=== PATIENT | female | born 1955 | race Caucasian/White ===

== ENCOUNTER 2022-08-02 13:16 | Observation (INO) | payer MEDICARE ==
[~2022-08-02] VITALS: Ht 165.1 cm; Wt 132.8 kg
--- OUTSIDE RECORDS SUMMARY | 2022-08-02 13:20 | XMS ---
PreManage Notification: BETSY CASTORENA Security [employer] Di[employer] Events No recent Security Events currently on file CRITERIA MET - [facility] CARE PROVIDERS There are no care providers on record at this time. Twila has no Care Guidelines for this patient. Tiffanie VISIT COUNT (12 MO.) [address] [place] [id number] JHONNY Tracey TOTAL 2 NOTE: Visits indicate total known visits. ED/C VISIT TRACKING (12 MO.) 08/02/2022 13:18 JHONNY Coy OR TYPE: Emergency COMPLAINT: - LIGHT HEADED, FATIGUED, DIZZY 03/03/2022 10:38 [facility] OR TYPE: Emergency DIAGNOSES: - POSS SHINGLES - Zoster without complications INPATIENT VISIT TRACKING (12 MO.) No inpatient visits to display in this time frame [email or web address]
[2022-08-02] MEDS ORDERED: METOPROLOL SUCC25 MG PO (13:48)
[2022-08-02] MEDS ORDERED: HYDROCHLOROTH12.5 MG PO (13:48)
[2022-08-02] MEDS ORDERED: TRULICITY4.5 MG/0.5 SUB-Q (13:48)
[2022-08-02] MEDS ORDERED: GABAPENTIN300 MG PO (13:48)
[2022-08-02] MEDS ORDERED: ATORVASTATIN CA40 MG PO (13:48)
[2022-08-02] MEDS ORDERED: OZEMPIC0.25 MG/0. SQ (13:49)
[2022-08-02] MEDS ORDERED: ONDANSETRON ODT4 MG PO (13:49)
--- NOTE | 2022-08-02 19:30 | NUR ---
PT ARRIVED TO UNIT FROM ED. FIRST UNIT OF PRBC INFUSING. PT AMBULATES WELL, A/O, RESPIRATIONS EVEN AND REGULAR.
--- NOTE | 2022-08-02 20:40 | NUR ---
MEDICATION ADMINISTRATION COMPLETED. PT A/O, RESPIRATIONS EVEN AND REGULAR. DENIES FEELING WEAK, LIGHTHEADED, OR SOB. CALL LIGHT WITHIN REACH.
--- NOTE | 2022-08-02 22:07 | NUR ---
PT HAS COMPLETED [id number] PRBC. NO ADVERSE REACTION. PT IS A/O, RESPIRATIONS EVEN AND REGULAR. IV FLUIDS RUNNING. CALL LIGHT WITHIN REACH.
--- NOTE | 2022-08-02 23:59 | NUR ---
PT ASSESSMENT COMPLETED. ASSISTED PT TO BEDSIDE COMMODE. PT IS A/O, AMBULATES WELL. IV FLUIDS RUNNING. DENIES ABD PAIN, DIZZINESS, SOB. CALL LIGHT WITHIN REACH.
--- NOTE | 2022-08-03 02:21 | NUR ---
TO PT ROOM FOR BG MONITORING. NO INSULIN REQUIRED ATT. ASSISTED PT TO BEDSIDE COMMODE. PT IS A/O, RESPIRATIONS EVEN AND REGULAR.
--- NOTE | 2022-08-03 04:21 | NUR ---
pt assessment completed. pt appears to be sleeping comfortably. arouses easily. IV fluids running.
--- NOTE | 2022-08-03 06:02 | NUR ---
PT LAB DRAW COMPLETED. PT TOLERATED WELL. IV FLUIDS RUNNING. CALL LIGHT WITHIN REACH.
--- NOTE | 2022-08-03 07:20 | NUR ---
REPORT RECEIVED, CARE OF PT ASSUMED AT THIS TIME.
--- NOTE | 2022-08-03 08:15 | NUR ---
ASSESSMENT AND MEDICATION ADMINISTRATION COMPLETED. PT ALERT AND ORIENTED. STATES SHE HAS PAIN FROM HER RECENT FALL AND REQUESTED PAIN MEDICATION. PT UNDERSTANDS PLAN FOR BOWEL PREP, CLEAR LIQUID DIET, AND UPPER AND LOWER ENDOSCOPY FOR TOMORROW. CALL LIGHT WITHIN REACH. WILL CONTINUE TO MONITOR.
--- NOTE | 2022-08-03 08:20 | NUR ---
INTO SEE PATIENT, PATIENT SITTING UP AT BEDSIDE. CASE MANAGEMENT ASSESSMENT COMPLETE. PATIENT STATES SHE LIVES IN A 2 STORY HOME WITH HER 85 YEARS OLD MOTHER. PATIENT STATES HE DAUGHTER ALSO LIVES CLOSE AND WILL BE ABLE TO HELP AT DISCHARGE IF NEEDED. PATIENT STATES SHE DOES USE A CANE FOR LONG DISTANCE WALKING, BUT FATIGUES QUICKLY. PATIENT STATES SHE HAS RECENTLY HAD A FALL DOWN HER STAIRS AT HOME, BUT IS PLANNING ON STAY ON THE FIRST FLOOR UNTIL SHE FEELS BETTER. DENIES FINANCIAL OR FOOD NEEDS. PATIENT ASKING IF THERE WERE ANY RESOURCES FOR CONSTRUTION WITH IN THE HOME. PATIENT STATES THAT SHE HAS MADE EFFORT TO MAKE HER HOME HANDICAP ACCESSIBLE HER MOTHER NOR HER WANT TO EVER GO TO A USP, BUT IS IN NEED OF A WALK IN SHOWER. RESOURCES GIVEN TO PATIENT FOR [facility] [employer] [place] TO DISCUSS ASSISTANCE WITH A SHOWER. NO FURTHER CASE MANAGEMENT NEEDS AT THIS TIME. WILL CONTINUE TO VISIT WITH PATIENT DURING HER STAY.
--- NOTE | 2022-08-03 08:51 | NUR ---
DR BECERRIL IN AT THIS TIME TO ASSESS PT AND UPDATE PT ON PLAN OF CARE FOR DAY. ALL QUESTIONS ANSWERED.
--- NOTE | 2022-08-03 09:16 | NUR ---
PT AMBULATED TO BATHROOM TO HAVE BOWEL MOVEMENT. STEADY ON FEET. NO DIZZINESS OR SHORTNESS OF BREATH. BACK IN BED. PRN PAIN MEDICATION GIVEN PER PATIENT REQUEST (SEE EMAR). CALL LIGHT WITHIN REACH. WILL CONTINUE TO MONITOR.
[2022-08-03] MEDS ORDERED: MECLIZINE HCL25 MG PO (09:37)
--- NOTE | 2022-08-03 10:17 | NUR ---
PT NAUSEATED. NOTIFIED. ORDERS RECIEVED FOR ZOFRAN PRN
--- NOTE | 2022-08-03 11:00 | NUR ---
PT NO LONGER NAUSEATED. STATES PAIN HAS DECREASED TO A MANAGABLE LEVEL. PHARMACIST IN ROOM TO GO OVER MEDICATIONS WITH PT AT THIS TIME.
--- NOTE | 2022-08-03 11:17 | NUR ---
MIR LAZO REQUESTED I NOT VISIT PT AT THIS TIME. DEALING WITH SOME NAUSEA. WILL CHECK BACK
--- NOTE | 2022-08-03 11:53 | NUR ---
PT SITTING ON SIDE OF BED USING HER PHONE. QUICKLY ASKED IF PT WOULD LIKE TO HAVE FR BRUSH VISIT TODAY. SHE SAID SHE WOULD LIKE THAT GAVE BLESSING, PT BACK TO HER PHONE CALL. WILL CONTACT FR BRUSH
[2022-08-03] MEDS ORDERED: TOUJEO SOL300 UNIT/1 SUB-Q (12:12)
[2022-08-03] MEDS ORDERED: HUMALOG JU100 UNIT/1 SUB-Q (12:13)
[2022-08-03] MEDS ORDERED: ZINC50 MG PO (12:14)
[2022-08-03] MEDS ORDERED: MAGOX 400400 MG PO (12:14)
[2022-08-03] MEDS ORDERED: VITAMIN D325 MCG PO (12:14)
[2022-08-03] MEDS ORDERED: IRON325 M1 PO (12:14)
--- NOTE | 2022-08-03 12:20 | NUR ---
ASSESSMENT UNCHANGED. PT GIVEN 3 UNITS OF INSULIN PER SLIDING SCALE. READING ASSISTANT NOW IN ROOM AT BEDSIDE. CALL LIGHT WITHIN REACH. WILL CONTINUE TO MONITOR.
[2022-08-03] MEDS ORDERED: NYSTATIN15 G2 TOP (12:32)
[2022-08-03] MEDS ORDERED: RABEPRAZOLE SOD20 MG PO (12:33)
--- NOTE | 2022-08-03 12:33 | NUR ---
MED REC COMPLETE
--- NOTE | 2022-08-03 12:45 | NUR ---
PATIENT AWAKE AT SIDE OF BED. VITALS CHARTED AND LUNCH PROVIDED.
--- NOTE | 2022-08-03 13:10 | NUR ---
RECEIVED REPORT, CARE ACCEPTED. PATIENT AWAKE, ALERT & ORIENTED X 4, SITTING ON SIDE OF BED, WATCHING TV. ADDRESSED NEEDS, OF MORE ICE IN CUP, AND DISCUSSED PAIN MEDICATION OPTIONS. ENCOURAGED PATIENT TO CONTINUE DRINKING BOWEL PREP. PATIENT WAS RECEPTIVE. PATIENT HR SINUS RHYTHM ON THE MONITOR, O2 SATS 92-95% ON ROOM AIR. RR EVEN AND UNLABORED. BOWEL SOUNDS ACTIVE ALL QUADS. LUNG SOUNDS CLEAR THROUGHOUT. IV INFUSING WITHOUT DIFFICULTY, SITE WNL, NO REDNESS OR HEMATOMAS NOTED.
--- NOTE | 2022-08-03 14:00 | NUR ---
PATIENT RESTING WITH EYES CLOSED, RR EVEN AND UNLABORED.
--- NOTE | 2022-08-03 14:29 | CONS ---
[facility] [address] [place], [place] [address] Signed DATE OF CONSULTATION: 08/03/2022 CHIEF COMPLAINT: Anemia. HISTORY OF PRESENT ILLNESS: Chelsea is a 67-year-old female, who actually was sent to our local emergency room by her primary care provider for findings of significant anemia on recent blood work. There is a question of whether or not she had anemia, but she had a green mucousy stool here in the hospital. She is quite pale and fatigued. She was put on the hospitalist service in the ICU. She received 2 units of packed red blood cells overnight and feels much better. She seems to be hemodynamically stable. She told me the anemia is chronic and because of that she loves to chew on ice. PAST MEDICAL HISTORY: 1. Chronic anemia. 2. Obstructive sleep apnea. 3. Hypertension. 4. Diabetes. 5. PICA syndrome. 6. Fibromyalgia. 7. Acid reflux. 8. Peptic ulcer disease x2. PAST SURGICAL HISTORY: Multiple upper and lower endoscopies with the [facility] with [facility] for polyps. SOCIAL HISTORY: She does not smoke or drink. She is retired now on disability for her back. She moved out to [place], [place] to be closer to her daughter. She does drive. Helen Bray is her physicians ophthalmic medical assistant here in [place], [place]. She prefers the [facility]. Her daughter is Adelia at [phone]. Her last Cardiology visit was with Dr. Alejandro in [place], [place]. FAMILY HISTORY: There is no family history of colon cancer or polyps. REVIEW OF SYSTEMS: She had 10 systems reviewed and she told me she has a long list of medical issues and we are trying to obtain those records from [place]. ALLERGIES: Electronically Signed By: JERRY DUONG MD 08/03/22 1429 PATIENT NAME: CHELSEA CASTORENA CONSULTATION DATE OF : 55 REPORT #: [id number] PHYSICIAN: JERRY DUONG MD PCP: HELEN BRAY PA-C REPORT IS CONFIDENTIAL AND NOT TO BE RELEASED WITHOUT AUTHORIZATION [facility] [address] [place], [place] [address] Signed Morphine and azithromycin. MEDICATIONS: 1. Gabapentin. 2. Metoprolol. 3. Hydrochlorothiazide. 4. Atorvastatin. 5. Trulicity. 6. Zofran. 7. Ozempic. PHYSICAL EXAMINATION: VITAL SIGNS: Her blood pressure is 135/96, heart rate is 76, respiratory rate 20. She is 5 feet 5 inches and 132 kg. Her body mass index is 48 and her temperature is 97.5. GENERAL: Chelsea is a 67-year-old female, who was sitting at the bedside this morning when I came around 7 o'clock this morning. She is actually very knowledgeable. She seemed to be quite coherent without any distress. LUNGS: Clear to auscultation bilaterally. HEART: Regular rate and rhythm. ABDOMEN: Obese, but soft. RECTAL: Exam is not repeated. LABORATORY DATA: Her white count is 5.2, the hemoglobin is 5.0, but it is up to 6.9 after 2 units, mean cell volume 72. The BUN is 17, the creatinine is 1.1, INR is 1.1. COVID is negative. Liver function tests are negative. Albumin is 2.7. EKG is pending. RADIOGRAPHIC STUDIES: None. ASSESSMENT AND PLAN: Chelsea is a 67-year-old obese diabetic female, who presents with what appears to be jqjdv-lz-pitddpx anemia. She certainly was quite pale and fatigued. She is very familiar with this whole process. I did review with her upper and lower endoscopy which she recalls quite well. Again, we are trying to obtain her records from the [facility]. She is going to go through her bowel prep today and we will plan on doing upper and lower endoscopy in the morning with monitored anesthesia care given her advanced age, anemia, and significant medical issues and her body mass index. She understands there is risk including, but not limited to gas bloating, crampy abdominal pain, bleeding, perforation requiring surgery, and missed diagnosis. She has expressed understanding and would like to proceed. Electronically Signed By: JERRY DUONG MD 08/03/22 1429 PATIENT NAME: CHELSEA CASTORENA CONSULTATION DATE OF : 55 REPORT #: [id number] PHYSICIAN: JERRY DUONG MD PCP: HELEN BRAY PA-C REPORT IS CONFIDENTIAL AND NOT TO BE RELEASED WITHOUT AUTHORIZATION [facility] [address] [place] [address] Signed Jerry Duong MD ALB/MODL /[id number] cc: MD Helen Domínguez PA-C Copies: JERRY DUONG MD ~ Electronically Signed By: JERRY DUONG MD 08/03/22 1429 PATIENT NAME: CHELSEA CASTORENA CONSULTATION DATE OF : 55 REPORT #: [id number] PHYSICIAN: JERRY DUONG MD PCP: HELEN BRAY PA-C REPORT IS CONFIDENTIAL AND NOT TO BE RELEASED WITHOUT AUTHORIZATION
--- NOTE | 2022-08-03 15:47 | NUR ---
PATIENT RESTING WITH EYES CLOSED, AWAKES EASILY AND APPROPRIATELY. LAB IN ROOM TO DRAW BLOOD. IV FLUIDS STOPPED PER MD ORDER. PATIENT CONTINUES TO REST, RR EVEN AND UNLABORED.
--- NOTE | 2022-08-03 17:34 | NUR ---
PATIENT AWAKE, RESTING IN BED, ASSISTED TO BATHROOM, GIVEN MEAL TRAY
--- NOTE | 2022-08-03 18:01 | NUR ---
PATIENT UP TO BATHROOM. HAVING BM. NO BLOOD SEEN IN STOOL.
--- NOTE | 2022-08-03 19:38 | NUR ---
RECEIVED REPORT FROM DAY SHIFT NURSE. PT IS A/O, RESPIRATIONS EVEN AND REGULAR. PT C/O FATIGUE, OTHERWISE NO COMPLAINTS. ASSISTED PT UP TO BEDSIDE COMMODE. CALL LIGHT WITHIN REACH.
--- NOTE | 2022-08-03 20:00 | NUR ---
PT ASSESSMENT AND MEDICATION ADMINISTRATION COMPLETED. PT IS COMPLETING SECOND BOTTLE OF BOWEL PREP. PT IS A/O, RESPIRATIONS EVEN AND REGULAR.
--- NOTE | 2022-08-03 21:25 | NUR ---
ASSISSTED PT TO BEDSIDE COMMODE. PT AMBULATES WELL. SECOND BOTTLE OF BOWEL PREP IS COMPLETED. PT IS A/O, CALL LIGHT WITHIN REACH.
--- NOTE | 2022-08-03 22:57 | NUR ---
ASSISTED PT TO BEDSIDE COMMODE. PT IS A/O, RESPIRATIONS EVEN AND REGULAR. CALL LIGHT WITHIN REACH.
--- NOTE | 2022-08-04 01:55 | NUR ---
TO PT ROOM FOR BG MONITORING. PT IS A/O, RESPIRATIONS EVEN AND REGULAR. DENIES NEEDS/COMPLAINTS ATT.
--- NOTE | 2022-08-04 02:57 | NUR ---
NOTED PATIENT OXYGEN SATURATION APPEARED TO DESAT TO 87% WITH GOOD PLETH ON MONITOR, INTO ROOM TO CHECK ON PATIENT. RESTING IN RIGHT SIDED POSITION, PATIENT APPEARED SOB, PATIENT STATES " I AM FEELING EXHAUSTED GETTING UP AND DOWN TO BSC BECAUSE OF ALL THE PREP" OXYGEN SATURATION 93% ON ROOM AIR, PATIENT VOIDED 300 ML OF BROWN LIQUID STOOL. UPON LEAVING ROOM PATIENT APPEARED TO RECOVER AND DID NOT APPEAR SOB. NO OTHER NEEDS, ENCOURAGED PATIENT TO CALL WHEN GETTING UP FOR STAFF ASSIST. PATIENT VERBALIZED UNDERSTANDING. CALL LIGHT WITHIN REACH.
--- NOTE | 2022-08-04 04:03 | NUR ---
PT ASSESSMENT COMPLETED. PT IS A/O, RESPIRATIONS EVEN AND REGULAR. PT SPO2 DROPPED TO 77% WHILE SLEEPING. PLACED ON 2L NC WHILE SLEEPING. CALL LIGHT WITHIN REACH.
--- NOTE | 2022-08-04 07:30 | NUR ---
REPORT RECIEVED. UP TO COMMODE TO VOID AND EXPELL SMALL LIGHT BROWN LIQ STOOL. DENIES PAIN OR NAUSEA. IS NPO FOR SCOPE. EGD/COLONOSCOPY TO BE DONE THIS AM. PATIENT IS AWARE.
--- NOTE | 2022-08-04 08:00 | NUR ---
ASSESSMENT COMPLETE. NO ACTIVE BLEEDING NOTED.
--- NOTE | 2022-08-04 08:40 | NUR ---
TO OR VIA STRETCHER FOR EGD AND COLONOSCOPY.
--- NOTE | 2022-08-04 09:20 | NUR ---
RETURN TO ROOM 128 FROM OR. IS AWAKE, FOLLOWING COMMANDS. REPORT RECIEVED FROM OR NURSE.
--- NOTE | 2022-08-04 09:26 | NUR ---
08/04/22 0926 Rachelle Mahajan 0917 NO PACU TIME. STRAIGHT TO CCU. PATIENT AWAKE ASKING/ANSWERING QUESTIONS APPROPRIATELY WITH STAFF.
--- NOTE | 2022-08-04 10:18 | NUR ---
SITTING UPAT BEDSIDE TO EAT BREAKFAST. DENIES PROBLEMS.
--- NOTE | 2022-08-04 11:00 | NUR ---
DR. ESPINAL HERE TO SEE PATIENT. DISCHARGE ORDERS RECIEVED.
--- NOTE | 2022-08-04 12:30 | NUR ---
ACCUCHECK-252, 3 UNITS HUMALOG INSULIN GIVEN. HAS BEEN GETTING UP TO BR W/O PROBLEMS. MONITOR DC'D. PATIENT NOW SITTING AT BEDSIDE TO EAT LUNCH.
--- NOTE | 2022-08-04 13:00 | NUR ---
SLEEPING, NO DISTRESS NOTED.
--- NOTE | 2022-08-04 13:40 | NUR ---
DISCHARGE INSTRUCTIONS GIVEN WITH PATIENT UNDERSTANDING. SL X 2 DC'Semaj.
--- NOTE | 2022-08-04 14:00 | NUR ---
DISCHARGED TO HOME ACCOMP BY DAUGHTER AND SENIOR DYNAMICS CRM DEVELOPER.
--- NOTE | 2022-08-05 08:05 | OR ---
[facility] [address] [place], [place] [address] Signed DATE OF OPERATION: 08/04/2022 SURGEON: Jerry Duong MD PREOPERATIVE DIAGNOSES: 1. Anemia. 2. Gastroesophageal reflux disease. 3. History of peptic ulcer disease x2. 4. Personal history of colonic polyps. POSTOPERATIVE DIAGNOSES: 1. Moderate gastritis. 2. Possible hiatal hernia. 3. Moderate external hemorrhoids. PROCEDURES: 1. Esophagogastroduodenoscopy with CLOtest and biopsies of the antrum. 2. Colonoscopy without biopsy. ESTIMATED BLOOD LOSS: None. INDICATION: Chelsea is a 67-year-old obese diabetic female, who was told by her primary care provider to come to our emergency room for her significant anemia. Also her platelet count is a little on the low side. In the meantime our hospitalist found a CT scan from last year that shows cirrhosis of the liver. Apparently, the patient is aware of this. The patient is fairly knowledgeable, but she is from [place] and we are still trying to track down her records. She said she has undergone multiple upper and lower endoscopies while in [place]. This has been through the [facility] with [facility]. She came in to our emergency room with a hemoglobin of 5.0. She got admitted to the Internal Medicine service and ICU. She was given 2 units of packed red blood cells. Her hemoglobin is now 7. Mean cell volume is low at 72. Her BUN was good at 17, creatinine is 1.1. INR was good at 1.1. COVID was negative. Her liver function tests were actually good. Albumin is low at 2.7. EKG showed normal sinus rhythm. I have been asked to see her as a general surgeon on-call for consideration of upper and lower endoscopy. Chelsea told me she is using Aciphex b.i.d. That is a prescription and yet there is some documentation and notes that she is purchasing this over the counter. Again, it is all little unclear. We are trying to track down her records. In the meantime, she went through a bowel prep yesterday. She has been hemodynamically stable. Electronically Signed By: JERRY DUONG MD 08/05/22 0805 PATIENT NAME: CHELSEA CASTORENA OPERATIVE REPORT DATE OF : 55 REPORT #: [id number] PHYSICIAN: JERRY DUONG MD PCP: HELEN BRAY PA-C REPORT IS CONFIDENTIAL AND NOT TO BE RELEASED WITHOUT AUTHORIZATION [facility] [address] [place], [place] [address] Signed She has actually done quite well. Really, the stools been mostly brown and mucousy. Really, not anything in the way of black stool. I met with Chelsea several times now. We talked about upper and lower endoscopy. She recalls the two tests quite well. She understands there is risk including, but not limited to gas bloating, crampy abdominal pain, bleeding, perforation requiring surgery, and missed diagnosis. We also reviewed the need for monitored anesthesia care given her advanced medical issues and her body habitus. She had expressed understanding and wished to proceed. PROCEDURE IN DETAIL: Chelsea was taken down to our endoscopy suite and placed in a supine semi-recumbent position. She was given monitored anesthesia care with IV propofol per our nurse office coordinator receptionist. Posterior oropharynx was anesthetized with Hurricaine spray. A bite block was utilized for the case. The adult gastroscope was introduced and advanced out into the antrum without difficulty. She has significant gastritis in the antrum. It took a few minutes in to get into the pylorus and then out into the duodenum. The duodenal and pyloric channel were unremarkable. Back in the antrum I took a biopsy for pathologic review as well as CLOtest. We took pictures throughout for photodocumentation. She does have some proximal gastritis, although markedly less. She does not have hypertrophied glands in the proximal half of the stomach as many people do after using a proton pump inhibitor twice a day. It looks like she may have a large hiatal hernia, although the cardia is not particularly concerning. She would need a barium swallow to ascertain that definition. The scope was withdrawn up through the area of the GE junction, which was compliant without stricture. We did not see any gastric or esophageal varices. Z-line is minimally interrupted. There was no Briggs's mucosa. No distal esophagitis. The middle and upper esophagus were unremarkable. After this, the gas was suctioned out and the gastroscope removed. Chelsea tolerated the upper endoscopy quite well. Chelsea was then rotated into the left lateral decubitus position. She was maintained on IV sedation with IV propofol. A digital rectal exam was performed and she has circumferential external hemorrhoids, moderate in size. She has good sphincter tone. There were no masses. The adult colonoscope was introduced and advanced all the way around into the cecum under direct visualization of camera. She has very large protuberant abdomen and it took the whole scope right up to the handle to get into the cecum. Overall, her prep was good. She can always use a little more prep in the future. The scope was slowly withdrawn. We took pictures throughout for photodocumentation. We found no polyps on this occasion and no diverticulosis. Upon retroflexion of the scope in the rectum, we did not see any obvious pathology above the anal canal. After this, the gas was suctioned out. The colonoscope removed. Chelsea tolerated the lower endoscopy quite well. RECOMMENDATIONS: Chelsea will be returned to her ICU bed on the hospital service. She will start on her Electronically Signed By: JERRY DUONG MD 08/05/22 0805 PATIENT NAME: CHELSEA CASTORENA OPERATIVE REPORT DATE OF : 55 REPORT #: [id number] PHYSICIAN: JERRY DUONG MD PCP: HELEN BRAY PA-C REPORT IS CONFIDENTIAL AND NOT TO BE RELEASED WITHOUT AUTHORIZATION [facility] [address] [place] [address] Signed diabetic diet. She will need to use a proton pump inhibitor twice a day at least for 6-8 weeks and then maybe once a day. She will follow up in my office in a week or so after discharge. Jerry Duong MD ALB/MODL /[id number] cc: SANDRA Winslow MD Copies: JERRY DUONG MD ~ Electronically Signed By: JERRY DUONG MD 08/05/22 0805 PATIENT NAME: CHELSEA CASTORENA OPERATIVE REPORT DATE OF : 55 REPORT #: [id number] PHYSICIAN: JERRY DUONG MD PCP: HELEN BRAY PA-C REPORT IS CONFIDENTIAL AND NOT TO BE RELEASED WITHOUT AUTHORIZATION
--- NOTE | 2022-08-05 15:58 | EKG ---
[facility] [address] [facility] [place] [address] Signed Normal sinus rhythm Normal ECG No previous ECGs available Confirmed by MADDIE ESPINAL MD ([id number]) on 08/05/2022 3:58:11 PM Electronically Signed By: MADDIE ESPINAL MD 08/05/22 1558 PATIENT NAME: BETSY CASTORENA Electrocardiogram DATE OF : 55 PHYSICIAN: MADDIE ESPINAL MD REPORT #: [id number] REPORT IS CONFIDENTIAL AND NOT TO BE RELEASED WITHOUT AUTHORIZATION
--- NOTE | 2022-08-07 15:38 | PATH ---
[facility] [address] [place], [place] [address] Signed SPECIMEN(S): A ANTRUM/ANTRAL BIOPSY SPECIMEN SOURCE: A. ANTRUM/ANTRAL BIOPSY CLINICAL HISTORY: Acute GI bleed, acute blood loss anemia. Dx: Gastritis/external hemorrhoids. FINAL PATHOLOGIC DIAGNOSIS: Antrum/antral biopsy: - Benign gastric-type mucosa with focal reactive epithelial features and mild chronic gastritis. - A Helicobacter pylori immunostain is negative for organisms. JVR:[facility]:C2NR MICROSCOPIC EXAMINATION: Histologic sections of all submitted blocks are examined by light microscopy. These findings, together with the gross examination, support the pathologic diagnosis. A Helicobacter pylori immunostain is performed with appropriate positive and negative controls on block (A1) and is negative for organisms. JVR:[facility] GROSS DESCRIPTION: The specimen, labeled and designated "Juan C, antrum/pylorus biopsy," is received in formalin and consists of two paniagua soft tissue fragments, ranging from 0.5-0.6 cm. Entirely submitted in (A1). VB (under the direct supervision of a pathologist) The Gross Description was prepared using a voice recognition system. The report was reviewed for accuracy; however, sound-alike word errors, addition and/or deletions may occur. If there is any question about this report, please contact Client Services. ADDITIONAL NOTES: Immunohistochemical and/or in situ hybridization studies were performed on this case with the appropriate positive controls that react as expected. This test was developed and its performance characteristics determined by Mr. Number. It has not been cleared or approved by the U.S. Food and Drug Administration. The FDA has determined that such clearance or approval is not necessary. This test is used for clinical purposes. It should not be regarded PATIENT NAME: BETSY CASTORENA PATHOLOGY DATE OF : 55 REPORT #: [id number] PHYSICIAN: [facility] PCP: HELEN BRAY PA-C REPORT IS CONFIDENTIAL AND NOT TO BE RELEASED WITHOUT AUTHORIZATION [facility] [address] [facility] [place], [place] [address] Signed as investigational or for research. Mr. Number is certified under the Clinical Laboratory Improvement Amendments of 1988 (CLIA) as qualified to perform high complexity clinical laboratory testing. This assay has not been validated for specimens that have been decalcified. PERFORMING LABORATORY: The technical component was performed by Mr. Number, [address] [place] [id number] (CLIA# [id number]). Professional interpretation was performed by Mr. Number Pathology - [facility], [address] [place] [id number] (CLIA#: [id number]). Diagnostician: Daniel Figueroa MD Pathologist Electronically Signed 08/07/2022 Copies: ~ PATIENT NAME: BETSY CASTORENA PATHOLOGY DATE OF : 55 REPORT #: [id number] PHYSICIAN: [facility] PCP: HELEN BRAY PA-C REPORT IS CONFIDENTIAL AND NOT TO BE RELEASED WITHOUT AUTHORIZATION
== END 2022-08-04 14:00 | disposition home or self-care (01) ==
LOC: ED 13:16 → CCU 13:19
PROVIDERS: Colon & Rectal Surgery; ADMIT Internal Medicine; ATTEND Internal Medicine
PROC: 0DB68ZX Excision of Stomach, Via Natural or Artificial Opening Endoscopic, Diagnostic (ICD-10-PCS; principal; 2022-08-04 09:00)
PROC: 0DJD8ZZ Inspection of Lower Intestinal Tract, Via Natural or Artificial Opening Endoscopic (ICD-10-PCS; 2022-08-04 09:00)
DX: D62 Acute posthemorrhagic anemia (principal); K29.51 Unspecified chronic gastritis with bleeding; K25.9 Gastric ulcer, unspecified as acute or chronic, without hemorrhage or perforation; I10 Essential (primary) hypertension; K21.9 Gastro-esophageal reflux disease without esophagitis; E11.9 Type 2 diabetes mellitus without complications; K74.60 Unspecified cirrhosis of liver; G89.4 Chronic pain syndrome; K64.4 Residual hemorrhoidal skin tags; E83.42 Hypomagnesemia; G47.30 Sleep apnea, unspecified; Z88.1 Allergy status to other antibiotic agents; Z88.5 Allergy status to narcotic agent; Z79.899 Other long term (current) drug therapy; Z79.4 Long term (current) use of insulin
CPT/HCPCS: 36415; 80048; 80053; 83735; 84100; 85014; 85025; 85060; 85610; 86850; 86900; 86901; 86922; 87077; 87502; 93005; 93010; 96375; 96376; C9113; C9803; G0378; J1815; J2060; J2405; J2704; J3475; J7121; P9016; U0003